=== PATIENT | male | born 1960 | race Caucasian/White ===

== ENCOUNTER 2025-05-07 13:26 | Outpatient (AMB) | payer MEDICARE, SELFPAY ==
--- OUTSIDE RECORDS SUMMARY | 2023-11-08 07:15 | XMS_ITS ---
Author Organization [facility] Address [address] [place] [address] Care Team Providers Care Medical Staff Manager Name Role Phone Baldomero Slaughter Primary Care Provider REASON FOR VISIT (IN OFFICE), Follow Up Encounters Encounter Location Date Provider Diagnosis [facility] [address] [place] [address] 11/08/19 Baldomero Slaughter PLAN OF TREATMENT Next Appt Details Provider Name:Baldomero cortez, 06/11/2025 10:00:00 AM, [address] [place], [address],
--- NOTE | 2025-05-07 14:11 | MHC.OFFVIS ---
Intake Visit Reasons: ENP-Ataxic Gait Allergies No Known Allergies Allergy (Verified 05/03/25 14:35) HPI Comments Details: The patient is a 65-year-old male presenting with motor and balance difficulties, possibly related to a neurological disorder. He received a cortisone injection approximately one year ago, followed by physical therapy, and later experienced right hamstring weakness. This has led to tightness and locking in his knees and difficulty with balance. The patient struggles with writing, stair navigation, and falls frequently. His right hand shakes, impeding writing, though the left hand remains unaffected. Multiple MRIs revealed no abnormalities, with a thoracic spine MRI pending. The patient denies diabetes and reports prior alcohol use. Memory is reportedly adequate, bladder control is normal, and there is no history of recent hospitalizations. A trial of Parkinson's medication has been initiated based on observed Parkinsonism features. [facility] Medical History (Updated 05/07/25 @ 14:18 by Kandy Villavicencio MD) Lumbar radiculopathy Ataxic gait Review of Systems Const Details: - Musculoskeletal: Reports tightness and locking of the knees; denies significant joint pain. - Neurological: Reports difficulty walking, imbalance, right hand tremor, falls, and inability to write with the right hand; denies cognitive impairment or memory loss. - Genitourinary: Denies difficulty with bladder control; occasional urgency noted. - General: Denies current alcohol consumption; reports previous use. Physical Exam Neuro Other: Mental Status: Alert and oriented to person, place, and time. Normal attention. Normal spontaneous speech, fluency, and comprehension. No obvious issues with mood and memory. Affect is appropriate. Cranial Nerves: CN II: Visual jurado full to confrontation, visual acuity intact. CN III, IV, : Pupils equal, round, reactive to light and accommodation. Extraocular movements are normal. CN V: Facial sensation is normal. CN VII: Facial movements symmetrical. CN VIII: Hearing intact to bedside conversation is normal. CN IX, X: Palate elevates symmetrically. CN XI: Shoulder shrug and head turn symmetrical. CN XII: Tongue midline without atrophy or fasciculations. Deep tendon reflexes are 1+ with flexor plantars. No obvious fasciculations are noted. There was mild generalized bradykinesia but more so of the right side. He has significant difficulty getting out of chair. He was walking in his small steps magnetic type of gait with decreased arm swing on the right side. Speech: Normal; no dysarthria or tremor. Assessment & Plan Assessment & Plan (1) Ataxic gait: Code(s): R26.0 - Ataxic gait Category: Medical (2) Parkinsonism: Code(s): G20.C - Parkinsonism, unspecified Category: Medical Qualifiers: Parkinsonism type: unspecified Qualified Code(s): G20.C - Parkinsonism, unspecified Plan Impression: 65 yo man with progressive gait disorder for about a year. He was also having many other physical difficulties. On exam, he has mild right hemibody parkinsonian features, and gait disorder. Rec: a: Trial of sinemet 25/100 tid b: Bring MRI brain CD at next visit Medications: New carbidopa-levodopa 25-100 mg (Sinemet) 1 tab PO TID 90 tabs 0RF Coding Level of Care Code New Pt Level 5 (31812) Diagnoses Ataxic gait R26.0 Parkinsonism, unspecified Parkinsonism type G20.C Parkinsonism type: unspecified
--- OUTSIDE RECORDS SUMMARY | 2025-05-07 16:29 | XMS_ITS | Encounter Summary ---
Author Organization [facility] Address [address] [place] [address] Care Team Providers Care Maintenance Supervisor 2Nd Shift Name Role Phone Ros Flores APRN Primary Care Provider Pcp, No Primary Care Provider Unavailabl e Reason for Visit * Reason Comments Medication Refill Encounter Details Date Type Department Care Team (Late st Contact Info) Description 07/09/2019 Refill [facility] [address] [facility] [address] [place] [address] Ros Flores APRN 100 [facility] [address] [place] [address] Anxiety and depression (Primary Dx) Social History Tobacco Use Types Packs/Day Years Used Date Smoking Tobacco: Former Cigarettes 0.5 20.2 0 08/15/1998 - 10/11/2018 Smokeless Tobacco: Current Comments:currently smoking t he vapor cigarettes Alcohol Use Standard Drinks/Week Comments Yes 6 (1 standard drink = 0.6 oz pur e alcohol) almost every day AUDIT-C Answer Date Recorded Frequency of Alcohol Consumption 4 or more times a week 11/14/2018 Average Number of Drinks 10 or more 019 Frequency of Binge Drinking Daily or almost chavo y 11/14/2018 Sex and Gender Information Value Date Recorded Sex Assigned at Not on file Legal Sex Male 12:28 PM EST Gender Identity Not on file Sexual Orientation Not on file documented as of this encounter Miscellaneous Notes * Telephone Encounter - Gemma Mcdonnell LPN - 07/09/2019 3:41 PM EST Is this ok to refill? Please advise. documented in this encounter Plan of Treatment Not on file documented as of this encounter Visit Diagnoses Diagnosis Anxiety and depression- Primary documented in this encounter Care Teams Maintenance Supervisor 2Nd Shift Relationship Specialty Start Date End Date Ros Flores APRN [address] [place] [address] PCP - General Family Medicine 09/07/18 01/05/24 Pcp, No PCP - General General Medicine 01/06/24 documented as of this encounter
--- OUTSIDE RECORDS SUMMARY | 2025-05-07 16:29 | XMS_ITS | Encounter Summary ---
Author Organization [facility] Address [address] [place] [address] Care Team Providers Care Digital Sales Executive Name Role Phone Ros Flores Raul CONNORS Primary Care Provider [phone] Pcp, No Primary Care Provider Unavailabl e Encounter Details Date Type Department Care Team (Late st Contact Info) Description 07/16/2020 Scanned Document [address] [place] [phone] Gastroenterology, Scan Social History Tobacco Use Types Packs/Day Years Used Date Smoking Tobacco: Light Smoker Cigarettes 0.5 20.2 Started: 999; Last attempted to quit: 10/11/2018 Smokeless Tobacco: Current Comments:currently smoking t he vapor cigarettes Alcohol Use Standard Drinks/Week Comments Yes 6 (1 standard drink = 0.6 oz pur e alcohol) almost every day AUDIT-C Answer Date Recorded Frequency of Alcohol Consumption 4 or more times a week 11/14/2018 Average Number of Drinks 10 or more 019 Frequency of Binge Drinking Daily or almost chavo y 11/14/2018 PHQ-2 Answer Date Recorded PHQ-2 Total Score 2 03/12/2020 Sex and Gender Information Value Date Recorded Sex Assigned at Not on file Legal Sex Male 12:28 PM EST Gender Identity Not on file Sexual Orientation Not on file COVID-19 Exposure Response Date Recorded In the last month, have you been in contact with someone who was confirmed or suspected to have Coronavirus / COVID-19? No / Unsure 07/17/2020 4:20 PM EST documented as of this encounter Plan of Treatment Not on file documented as of this encounter Procedures Procedure Name Priority Date/Time Associated Diagnosis Comments HX GASTROENTEROLOGY OTHER TEST/PROCEDURES-SCAN 07/16/2020 HX GASTROENTEROLOGY OTHER TEST/PROCEDURES-SCAN 07/16/2020 documented in this encounter Results * HX GASTROENTEROLOGY OTHER TEST/PROCEDURES-SCAN (07/16/2020) 07/16/2020 us Scan Gastroenterology HX AMB PROCEDURES Edited R esult - Final * HX GASTROENTEROLOGY OTHER TEST/PROCEDURES-SCAN (07/16/2020) 07/16/2020 us Scan Gastroenterology HX AMB PROCEDURES Edited R esult - Final documented in this encounter Visit Diagnoses Not on filedocumented in this encounter Care Teams Digital Sales Executive Relationship Specialty Start Date End Date Ros Flores APRN [address] [place] [address] PCP - General Family Medicine 09/07/18 01/05/24 Pcp, No PCP - General General Medicine 01/06/24 documented as of this encounter
--- OUTSIDE RECORDS SUMMARY | 2025-05-07 16:29 | XMS_ITS | Clinical Summary ---
Author Organization [facility] Address [address] [place] [address] Care Team Providers Care School Examiner Name Role Phone Ros Flores WAYLON Primary Care Provider [phone] Allergies No known active allergies Medications Medication Sig Dispensed Refills Start Date End Date Status hydrALAZINE (APRESOLINE) 25 MG tablet Take 25 mg by mouth 2 (two) times a day. 0 Active hydroCHLOROthiazide (HYDRODIURIL) tablet 25 mg Take 25 mg by mouth daily. 0 Active atorvastatin (LIPITOR) tablet 20 mg Take 20 mg by mouth daily. 0 Active BUPROPION HCL PO Take 300 mg by mouth daily. 0 Active losartan (COZAAR) 100 MG tablet Take 100 mg by mouth daily. 0 Active pantoprazole (PROTONIX) 40 MG tablet Take 40 mg by mouth daily. 0 Active amLODIPine (NORVASC) tablet 10 mg Take 10 mg by mouth daily. 0 Active sertraline (ZOLOFT) 100 MG tablet Take 100 mg by mouth daily. 0 Active busPIRone (BUSPAR) 15 MG tablet Take 15 mg by mouth 3 (three) times a day. 0 Active acamprosate (CAMPRAL) 333 MG tablet Take 666 mg by mouth 3 (three) times a day. 0 Active Social History Tobacco Use Types Packs/Day Years Used Date Smoking Tobacco: Every Day Cigars Smokeless Tobacco: Never Comments:3 to 4 cigars per d ay Alcohol Use Standard Drinks/Week Comments Yes 0 (1 standard drink = 0.6 oz pur e alcohol) on weekends Sex and Gender Information Value Date Recorded Sex Assigned at Male 07/11/2020 7:46 AM EST Gender Identity Not on file Sexual Orientation Not on file Last Filed Vital Signs Vital Sign Reading Time Taken Comments Blood Pressure 133/79 07/16/2020 11:05 AM EST Pulse 71 07/16/2020 11:05 AM EST Temperature 36.3 C (97.3 F) 07/16/2020 10:45 AM EST Respiratory Rate 18 07/16/2020 11:05 AM EST Oxygen Saturation 97% 07/16/2020 11:05 AM EST Inhaled Oxygen Concentration - - Weight 108.9 kg (240 lb) 07/16/2020 9:22 AM EST Height 182.9 cm (6') 07/16/2020 9:22 AM EST Body Mass Index 32.55 07/16/2020 9:22 AM EST Plan of Treatment Health Maintenance Due Date Last Done Comments Hepatitis C Screening 1960 COVID-19 Vaccine (#1) 1960 Pneumococcal Vaccine (1 of 2 - PCV) 01/29/1964 Depression Screening 1970 BMI Counseling 01/29/1976 Preventative Health Evaluation 01/29/1976 Tobacco Cessation Counseling 01/29/1976 Shingrix-Zoster Vaccine (1 o f 2) 01/29/2008 Abdominal Aortic Aneurysm (AAA) Screening 2023 Fall Risk Assessment 2023 Influenza Vaccine (#1) 2025 0, 06/11/2019 DTap / Tdap / Td (2 - Td or Tdap) 04/24/2030 04/24/2020 Colon Cancer Screening (Colonoscopy) 07/16/2030 07/16/2020 RSV Adult > 60+ Yrs or (1 - 1-dose 75+ series) 2033 Hepatitis B Vaccines Aged Out No long er eligible based on patient's age to complete this topic RSV Ped < 20 months Aged Out No longe r eligible based on patient's age to complete this topic Care Teams School Examiner Relationship Specialty Start Date End Date Ros Flores APRN [address] [place] [address] PCP - General Unknown Physician Specialty 07/16/20
--- OUTSIDE RECORDS SUMMARY | 2025-05-07 16:29 | XMS_ITS | Encounter Summary ---
Author Organization [facility] Address [address] [place] [address] Care Team Providers Care Service Administrator Name Role Phone Ros Flores APRN Primary Care Provider [phone] Pcp, No Primary Care Provider Unavailabl e Reason for Visit * Reason Comments Medication Refill Encounter Details Date Type Department Care Team (Late st Contact Info) Description 03/03/[address] [place] [address] Ros Flores APRN 100 [facility] [address] [place] [address] Erectile dysfunction, unspecified erectile dysfunction type Social History Tobacco Use Types Packs/Day Years Used Date Smoking Tobacco: Every Day Cigarettes 0.5 20.2 Started: 08/15/1998; Last attempted to quit: 10/11/2018 Smokeless Tobacco: [...] have Coronavirus / COVID-19? No / Unsure 02/25/2021 11:39 AM EDT documented as of this encounter Plan of Treatment Not on file documented as of this encounter Visit Diagnoses Diagnosis Erectile dysfunction, unspecified erectile dysfunction type documented in this encounter Care Teams Service Administrator Relationship Specialty Start Date End Date Ros Flores APRN [address] [place] [address] PCP - General Family Medicine 09/07/18 01/05/24 Pcp, No PCP - General General Medicine 01/06/24 documented as of this encounter
--- OUTSIDE RECORDS SUMMARY | 2025-05-07 16:29 | XMS_ITS | Encounter Summary ---
Author Organization [facility] Address [address] [place] [address] Care Team Providers Care Construction Accountant Name Role Phone Ros Flores APRN Primary Care Provider Pcp, No Primary Care Provider Unavailabl e Encounter Details Date Type Department Care Team (Late st Contact Info) Description 03/12/2020 Scanned Document [address] [place] [address] Ros Flores APRN 100 [facility] [address] [place] [address] Social History Tobacco Use Types Packs/Day Years [...] have Coronavirus / COVID-19? No / Unsure 03/12/2020 1:02 PM EDT documented as of this encounter Plan of Treatment Not on file documented as of this encounter Visit Diagnoses Not on filedocumented in this encounter Care Teams Construction Accountant Relationship Specialty Start Date End Date Ros Flores APRN [address] [place] [address] PCP - General Family Medicine 09/07/18 01/05/24 Pcp, No PCP - General General Medicine 01/06/24 documented as of this encounter
--- OUTSIDE RECORDS SUMMARY | 2025-05-07 16:29 | XMS_ITS | Encounter Summary ---
Author Organization [facility] Address [address] [place] [address] Care Team Providers Care Bolter Helper Name Role Phone Ros Flores APRN Primary Care Provider [phone] Pcp, No Primary Care Provider Unavailabl e Reason for Visit * Reason Onset Date Comments Medication Refill 01/13/2020 Encounter Details Date Type Department Care Team (Late st Contact Info) Description 01/13/2020 Refill [facility] 100 [facility] [address] [place] [phone] Ros Flores APRN [address] [place] [address] [address] [place] [address] Essential hypertension Social History Tobacco Use Types Packs/Day Years [...] Telephone Encounter - Gemma Mcdonnell LPN - 01/14/2020 1:04 PM EDT Please clarify dosages. Note from pharmacy states -The previous medication was prescribed with free-text dispense value of 90 capsule. Please review the discrete dispense values when signing the order. documented in this encounter Plan of Treatment Not on file documented as of this encounter Visit Diagnoses Diagnosis Essential hypertension Unspecified essential hypertension documented in this encounter Care Teams Bolter Helper Relationship Specialty Start Date End Date Ros Flores APRN [address] [place] [address] PCP - General Family Medicine 09/07/18 01/05/24 Pcp, No PCP - General General Medicine 01/06/24 documented as of this encounter
--- OUTSIDE RECORDS SUMMARY | 2025-05-07 16:29 | XMS_ITS | Encounter Summary ---
Author Organization [facility] Address [address] [place] [address] Care Team Providers Care Airplane Captain Name Role Phone Ros Flores WAYLON Primary Care Provider [phone] Pcp, No Primary Care Provider Unavailabl e Encounter Details Date Type Department Care Team (Late st Contact Info) Description 04/07/2020 Scanned Document [facility] [address] [place] [address] Provider, Jaylene, [address] [place] [address] Social History Tobacco Use Types Packs/Day Years [...] on filedocumented in this encounter Care Teams Airplane Captain Relationship Specialty Start Date End Date Ros Flores APRN [address] [place] [address] PCP - General Family Medicine 09/07/18 01/05/24 Pcp, No PCP - General General Medicine 01/06/24 documented as of this encounter
--- OUTSIDE RECORDS SUMMARY | 2025-05-07 16:29 | XMS_ITS | Encounter Summary ---
Author Organization [facility] Address [address] [place] [address] Care Team Providers Care Silk Blocker Name Role Phone Ros Flores APRN Primary Care Provider [phone] Pcp, No Primary Care Provider Unavailabl e Encounter Details Date Type Department Care Team (Late st Contact Info) Description 11/13/2021 Scanned Document [address] [place] [address] Ros Flores APRN 100 [facility] [address] [place] [address] Social History Tobacco Use Types Packs/Day Years Used Date Smoking Tobacco: Former Cigarettes 0.5 22.8 0 08/15/1998 - 05/29/2021 Smokeless Tobacco: Current Comments:currently smoking t he [...] have Coronavirus / COVID-19? No / Unsure 11/09/2021 2:40 PM EDT documented as of this encounter Plan of Treatment Not on file documented as of this encounter Visit Diagnoses Not on filedocumented in this encounter Care Teams Silk Blocker Relationship Specialty Start Date End Date Ros Flores APRN [address] [address] PCP - General Family Medicine 09/07/18 01/05/24 Pcp, No PCP - General General Medicine 01/06/24 documented as of this encounter
--- OUTSIDE RECORDS SUMMARY | 2025-05-07 16:29 | XMS_ITS | Encounter Summary ---
Author Organization [facility] Address [address] [place] [address] Care Team Providers Care Billet Worker Name Role Phone Ros Flores APRN Primary Care Provider Pcp, No Primary Care Provider Unavailabl e Reason for Visit * Reason Onset Date Comments Medication Refill 03/05/2021 Encounter Details Date Type Department Care Team (Late st Contact Info) Description 03/05/[address] [place] [phone] Ros Flores APRN 100 [facility] [address] [place] [address] Erectile dysfunction, unspecified erectile dysfunction type Social [...] type documented in this encounter Care Teams Billet Worker Relationship Specialty Start Date End Date Ros Flores APRN [address] [place] [address] PCP - General Family Medicine 09/07/18 01/05/24 Pcp, No PCP - General General Medicine 01/06/24 documented as of this encounter
--- OUTSIDE RECORDS SUMMARY | 2025-05-07 16:29 | XMS_ITS | Patient Health Record ---
Author Organization [facility] Address [address] [place] [address] Care Team Providers Care Plasterer Foreman Name Role Phone Baldomero Slaughter Primary Care Provider ALLERGIES No Known Allergies REASON FOR REFERRAL No Information MEDICATIONS Medication SIG (Take, Route, Frequency, Duration) Notes Start Date End Date Status metroNIDAZOLE 0.75 % 1 application Externally Twice a day Active Melatonin 5 MG 1 tablet in the evening Orally Once a day for 30 day(s) Active Tadalafil 20 MG 1 tablet Orally for 30 day(s) Active Triamcinolone Acetonide 0.1 % 1 applicat ion Externally Twice a day Active Sertraline HCl 100 MG 0.5 tablet Orally Once a day Active hydrALAZINE HCl 25 MG TAKE 1 TABLET BY M OUTH TWICE DAILY WITH FOOD for 90 Active Baclofen 10 MG 1 tablet as needed Orally Twice a day for 90 Days Active Sertraline HCl 100 MG TAKE 1 TABLET BY M OUTH ONCE DAILY for 90 Active Famotidine 40 MG TAKE 1 TABLET BY GRICEL TH ONCE DAILY AT BEDTIME for 90 Active Atorvastatin Calcium 20 MG TAKE 1 TABLET BY MOUTH ONCE DAILY for 100 Active hydroCHLOROthiazide 25 MG 1 tablet in th e morning Orally Once a day Active Atorvastatin Calcium 20 MG 1 tablet Oral ly Once a day Active Famotidine 40 MG 1 tablet at bedtime Orally Once a day Active Pantoprazole Sodium 20 MG TAKE 2 TABLETS BY MOUTH ONCE DAILY for 80 Active IMMUNIZATIONS Vaccine Route Administration Date Status Comme nts *Influenza (Fluarix Quad) IM Intramuscular 06/08/2022 Admi nistered *Influenza (Fluarix Quad) IM Intramuscular 05/17/2023 Admi nistered SOCIAL HISTORY Tobacco Use: Social History Observation Description Date Details (start date - stop date) Current Smoker NA - NA Sex Assigned At : Social History Observation Description Sex Assigned At Unknown Tobacco Use/Smoking Question Answer Notes Are you a current smoker Alcohol Screen Question Answer Notes Did you have a drink containing alcohol in the p ast year? 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) Active confirmed 63270550 Problem History of alcohol abuse (F10.11) Active confirmed 269037713 Problem Gastroesophageal reflux disease with esophagitis without hemorrhage (K21.00) Active confirmed 571098215 PLAN OF TREATMENT Pending Test Test Name Order Date X ray : Hip, right 08/18/2022 GUAIAC, SINGLE SPECIMEN 08/18/2022 25OH VITAMIN D 05/17/2023 25OH VITAMIN D 06/08/2022 AMMONIA, VENOUS 06/08/2022 AMYLASE 06/08/2022 CBC (COMPLETE BLOOD COUNT) WITH DIFF CBC (COMPLETE BLOOD COUNT) WITH DIFF 10/2022 COMPREHENSIVE METABOLIC PANEL 06/08/2022 COMPREHENSIVE METABOLIC PANEL 05/17/2023 FOLIC ACID 06/08/2022 GGTP 06/08/2022 HEPATIC FUNCTION PANEL 11/16/2022 LH 06/08/2022 LIPASE 06/08/2022 LIPID PANEL 11/16/2022 LIPID PANEL 06/08/2022 LIPID PANEL 05/17/2023 PSA, SCREEN 06/08/2022 PSA, SCREEN 05/17/2023 TESTOSTERONE, FREE, TOTAL AND BOUND 05/16 THYROID PANEL (TSH, FT4) 06/08/2022 THYROID PANEL (TSH, FT4) 05/17/2023 URINALYSIS, COMPLETE 05/17/2023 URINALYSIS, COMPLETE 06/08/2022 VITAMIN B12 06/08/2022 Next Appt Details Provider Name:Baldomero cortez, 06/11/2025 10:00:00 AM, [address] [place] [address], [phone], Insurance Providers Payer Name Payer Address Payer Phone Subscriber Number Group Number Insured Name Patient Relationship to Insured Coverage Start Date Coverage End Date [facility] [address] [facility] [place] [id number] [phone] [id number] Mario Kovacs Self - patient is the insured MEDICAL (GENERAL) HISTORY Surgical History Surgery Date(Month/Year)
--- OUTSIDE RECORDS SUMMARY | 2025-05-07 16:29 | XMS_ITS | Encounter Summary ---
Author Organization [facility] Address [address] [place] [address] Care Team Providers Care Analysis Manager Name Role Phone Mark Ros Raul CONNORS Primary Care Provider [phone] Pcp, No Primary Care Provider Unavailabl e Encounter Details Date Type Department Care Team (Late st Contact Info) Description 11/01/2023 Telephone [facility] [address] [place] [phone] Terrance Stephenson [address] [place], [place] [id number] Social History Tobacco Use Types Packs/Day Years [...] encounter Miscellaneous Notes * Telephone Encounter - Terrance Stephenson - 11/01/2023 2:02 PM EDT Patient has a new insurance. He lm have procedure done with different doctor documented in this encounter Plan of Treatment Not on file documented as of this encounter Visit Diagnoses Not on filedocumented in this encounter Care Teams Analysis Manager Relationship Specialty Start Date End Date Ros Flores APRN [address] [place] [address] PCP - General Family Medicine 09/07/18 01/05/24 Pcp, No PCP - General General Medicine 01/06/24 documented as of this encounter
--- OUTSIDE RECORDS SUMMARY | 2025-05-07 16:29 | XMS_ITS | Encounter Summary ---
Author Organization [facility] Address [address] [place] [address] Care Team Providers Care Shrimp Pond Laborer Name Role Phone Ros Flores APRN Primary Care Provider Pcp, No Primary Care Provider Unavailabl e Reason for Visit * Reason Comments Medication Refill Encounter Details Date Type Department Care Team (Late st Contact Info) Description 07/16/2019 Refill [facility] 100 [facility] [address] [place] [phone] Ros Flores APRN [address] [facility] [address] [place] [address] Essential hypertension (Primary Dx); Hiatal hernia Social History Tobacco Use Types Packs/Day Years [...] Telephone Encounter - Gemma Mcdonnell LPN - 07/17/2019 9:44 AM EST Please see last telephone encounter.please advise. documented in this encounter Plan of Treatment Not on file documented as of this encounter Visit Diagnoses Diagnosis Essential hypertension- Primary Unspecified essential hypertension Hiatal hernia Diaphragmatic hernia without mention of obstruction or gangrene documented in this encounter Care Teams Shrimp Pond Laborer Relationship Specialty Start Date End Date Ros Flores APRN [address] [place] [address] PCP - General Family Medicine 09/07/18 01/05/24 Pcp, No PCP - General General Medicine 01/06/24 documented as of this encounter
--- OUTSIDE RECORDS SUMMARY | 2025-05-07 16:29 | XMS_ITS | Encounter Summary ---
Author Organization [facility] Address [address] [place] [address] Care Team Providers Care Personnel Placement Specialist Name Role Phone Ros Flores APRN Primary Care Provider [phone] Pcp, No Primary Care Provider Unavailabl e Reason for Visit * Reason Comments Medication Refill Encounter Details Date Type Department Care Team (Late st Contact Info) Description 01/17/[address] [place] [phone] Ros Flores APRN 100 [facility] [address] [place] [address] Essential hypertension Social History Tobacco Use Types [...] Telephone Encounter - Gemma Mcdonnell LPN - 01/17/2020 11:38 AM EDT Notification received from pharmacy regarding clarification of HCTZ dosages. Please advise. Pharmacy comment: Alternative Requested:NEEDS TO BE FOR 25MG TABLETS PT STATES MD VERBALLY TOLD TO INCREASE DOSE. NEED PRESCRIPTION TO REFELCT CURRENT DOSAGE. documented in this encounter Plan of Treatment Not on file documented as of this encounter Visit Diagnoses Diagnosis Essential hypertension Unspecified essential hypertension documented in this encounter Care Teams Personnel Placement Specialist Relationship Specialty Start Date End Date Ros Flores APRN [address] [place] [address] PCP - General Family Medicine 09/07/18 01/05/24 Pcp, No PCP - General General Medicine 01/06/24 documented as of this encounter
--- OUTSIDE RECORDS SUMMARY | 2025-05-07 16:29 | XMS_ITS | Encounter Summary ---
Author Organization [facility] Address [address] [place] [address] Care Team Providers Care Clinical Business Manager Name Role Phone Ros Flores APRN Primary Care Provider [phone] Pcp, No Primary Care Provider Unavailabl e Reason for Visit * Reason Comments Medication Refill Encounter Details Date Type Department Care Team (Late st Contact Info) Description 11/08/[address] [place] [phone] Ros Flores APRN 100 [facility] [address] [place] [address] Anxiety and depression Social History Tobacco Use Types Packs/Day Years [...] on file documented as of this encounter Plan of Treatment Not on file documented as of this encounter Visit Diagnoses Diagnosis Anxiety and depression documented in this encounter Care Teams Clinical Business Manager Relationship Specialty Start Date End Date Ros Flores APRN [address] [place] [address] PCP - General Family Medicine 09/07/18 01/05/24 Pcp, No PCP - General General Medicine 01/06/24 documented as of this encounter
--- OUTSIDE RECORDS SUMMARY | 2025-05-07 16:29 | XMS_ITS | Encounter Summary ---
Author Organization [facility] Address [address] [place] [address] Care Team Providers Care Firer Helper Name Role Phone Ros Flores APRN Primary Care Provider [phone] Pcp, No Primary Care Provider Unavailabl e Reason for Visit * Reason Comments Medication Refill Encounter Details Date Type Department Care Team (Late st Contact Info) Description 12/30/[address] [place] [phone] Ros Flores APRN 100 [facility] [address] [place] [address] Essential hypertension Social History Tobacco Use Types [...] hypertension documented in this encounter Care Teams Firer Helper Relationship Specialty Start Date End Date Ros Flores APRN [address] [place] [address] PCP - General Family Medicine 09/07/18 01/05/24 Pcp, No PCP - General General Medicine 01/06/24 documented as of this encounter
--- OUTSIDE RECORDS SUMMARY | 2025-05-07 16:29 | XMS_ITS | Clinical Summary ---
Author Organization [facility] Address [address] [place] [address] Care Team Providers Care Booking Prizer Name Role Phone Pcp, No Primary Care Provider Unavailabl e Allergies No known active allergies Medications busPIRone (BUSPAR) 15 MG tablet Take 15 mg by mouth 3 (three) times a day. Active acamprosate (CAMPRAL) 333 MG tablet Take 333 mg by mouth 3 (three) times a day. Active buPROPion (WELLBUTRIN XL) 300 MG 24 hr tabletIndications :Anxiety and depression TAKE 1 TABLET BY MOUTH EVERY DAY 90 tablet 1 0 Active metroNIDAZOLE (METROGEL) 0.75 % topical gelIndications:Ac ne rosacea Apply topically 2 (two) times a day. 45 g 1 1 Active amLODIPine (NORVASC) 10 MG tabletIndications :Essential hypertension Take 1 tablet (10 mg total) by mouth daily. 90 tablet 1 1 Active baclofen (LIORESAL) 10 MG tablet 1 Active gabapentin (NEURONTIN) 300 MG capsule 1 Active [facility] Melatonin 5 MG Tab tablet 1 Active naltrexone (REVIA) 50 MG tablet 1 Active tadalafil (CIALIS) 20 MG tabletIndications :Erectile dysfunction, unspecified erectile dysfunction type Take 1 tablet (20 mg total) by mouth daily as needed for erectile dysfunction. 10 tablet 1 1 Active sertraline (ZOLOFT) 100 MG tabletIndications :Anxiety and depression Take 2 tablets (200 mg total) by mouth daily. 180 tablet 2 2 Active triamcinolone (KENALOG) 0.1 % ointmentIndicatio ns:Eczema, unspecified type APPLY TO AFFECTED AREA TWICE A DAY 30 g 1 2 Active hydrochlorothiazi de (HYDRODIURIL) 25 MG tabletIndications :Essential hypertension TAKE 1 TABLET BY MOUTH EVERY DAY 90 tablet 1 2 Active zoster vaccine recombinant adjuvanted (SHINGRIX) 50 MCG/0.5ML injectionIndicati ons:Need for zoster vaccination Inject 0.5 mL into the shoulder, thigh, or buttocks once. 0.5 mL 2 Active atorvastatin (LIPITOR) 20 MG tabletIndications :Hypercholesterem ia TAKE 1 TABLET BY MOUTH EVERY DAY 90 tablet 1 2 Active olmesartan (BENICAR) 40 MG tabletIndications :Essential hypertension TAKE 1 TABLET BY MOUTH EVERY DAY 90 tablet 2 Active PANTOprazole (PROTONIX) 20 MG tabletIndications :Brown's esophagus without dysplasia TAKE 2 TABLETS BY MOUTH TWICE A DAY 90 tablet 1 2 Active hydrALAZINE (APRESOLINE) 25 MG tabletIndications :Essential hypertension TAKE 1 TABLET (25 MG TOTAL) BY MOUTH 2 (TWO) TIMES A DAY AFTER BREAKFAST AND LUNCH. 180 tablet 1 3 Active Active Problems Problem Noted Date Diagnosed Date Centrilobular emphysema 11/09/2021 Obesity 11/09/2021 Brown's esophagus without dysplasia 06/06/2020 Assessment & Plan (11/09/2021 4:25 PM EDT): Discussed Avoiding /limit tobacco, alcohol, chocolate, peppermint, caffeine, greasy foods, spicy foods, and acidic foods such as citrus and tomato. Eat smaller, more frequent meals, and do not eat within 2 hours of bedtime. If you have night-time symptoms, elevate the head of the bed 6 to 12 inches. Assessment & Plan (06/06/2020 2:41 PM EDT): Discussed the increased risk of dysplasia and esophageal cancer associated with Brown's Esophagus. ETOH, obesity, smoking and GERD increase risk. Recommend treatment for acid reduction. Routine surveillance and biopsy are recommended to monitor for dysplasia and cancer. Continue pantoprazole EGD overdue for surviellance Change in bowel function 06/06/2020 Assessment & Plan (06/06/2020 2:42 PM EDT): Improved with new OTC supplements Follow clinically Gastroesophageal reflux disease 06/05/2020 Assessment & Plan (06/06/2020 2:41 PM EDT): Avoid/limit tobacco, alcohol, chocolate, peppermint, caffeine, greasy foods, spicy foods, and acidic foods such as citrus and tomato. Eat smaller, more frequent meals, and do not eat within 2 hours of bedtime. If you have night-time symptoms, elevate the head of the bed 6 to 12 inches. Well controlled on pantoprazole Cutting down on alcohol Melena 06/05/2020 Assessment & Plan (06/06/2020 2:53 PM EDT): Unclear if due to new supplement, r/o GI bleeding EGD/Colonoscopy Check H/H now to see if any change The risks, benefits and alternatives to the procedure were carefully explained to the patient. The risks include but are not limited to perforation, bleeding, infection, respiratory compromise and . All questions were answered. Adenomatous polyp of colon 06/05/2020 Assessment & Plan (06/06/2020 2:48 PM EDT): Hx colonoscopy 2012 with multiple TA Overdue for colonoscopy The risks, benefits and alternatives to the procedure were carefully explained to the patient. The risks include but are not limited to perforation, bleeding, infection, respiratory compromise and . All questions were answered. Covid testing prior Hypercholesteremia 06/11/2019 Assessment & Plan (02/09/2022 7:04 PM EDT): The 10-year ASCVD risk score (Eddie CASTILLO Jr., et al., 2013) is: 16% Values used to calculate the score: Age: 62 years Sex: Male Is Non- : No Diabetic: No Tobacco smoker: Yes Systolic Blood Pressure: 136 mmHg Is BP treated: Yes HDL Cholesterol: 68 mg/dL Total Cholesterol: 172 mg/dL Continue Lipitor 20 mg daily. Assessment & Plan (11/09/2021 4:27 PM EDT): The 10-year ASCVD risk score (Eddie CASTILLO Jr., et al., 2013) is: 15.4% Values used to calculate the score: Age: 61 years Sex: Male Is Non- : No Diabetic: No Tobacco smoker: Yes Systolic Blood Pressure: 138 mmHg Is BP treated: Yes HDL Cholesterol: 68 mg/dL Total Cholesterol: 172 mg/dL Continue Lipitor 20 mg we will recheck lipid panel Essential hypertension 11/14/2018 Overview (10/22/2020): --Echo-2019-LV end-diastolic dimension 58 mm in LVEF 53 percent. Upper normal aortic root size. Assessment & Plan (02/09/2022 7:04 PM EDT): Blood pressure normal will continue amlodipine 10 mg Benicar 40 mg with hydrochlorothiazide hydrochlorothiazide 25 mg. Low sodium diet Exercise 3 to 5 days a week for minimum 35 minutes. Follow-up in 3 months Assessment & Plan (11/09/2021 4:27 PM EDT): Blood pressure normal on amlodipine, Benicar and hydrochlorothiazide DASH diet. Alcoholism /alcohol abuse 11/14/2018 Assessment & Plan (06/06/2020 2:57 PM EDT): Check lab work Treatment per pcp Hiatal hernia 11/14/2018 Generalized anxiety disorder 11/14/2018 Immunizations Immunization Administration Dates Next Due Covid-19 MRNA Vaccine - Pfizer 12+ (Purple Cap) 12/19/2020,11/28/2020 Influenza Inactivated/Split Preservative Free IM 06/04/2020,06/11/2019 Tdap 04/24/2020 Family History Medical History Relation Name Comments Dementia Father Relation Name Status Comments Father Social History Tobacco Use Types Packs/Day Years Used Date Smoking Tobacco: Former Cigarettes 0.5 22.8 0 08/15/1998 - 05/29/2021 Smokeless Tobacco: Current Tobacco Cessation:Ready to Q uit: Yes; Counseling Given: Yes Comments:currently smoking the vapor cigarettes Alcohol Use Standard Drinks/Week Comments [...] Sign Reading Time Taken Comments Blood Pressure 136/80 02/09/2022 2:22 PM EDT Pulse 76 02/09/2022 2:22 PM EDT Temperature 36.2 C (97.1 F) 02/09/2022 2:22 PM EDT Respiratory Rate 16 02/09/2022 2:22 PM EDT Oxygen Saturation 96% 02/09/2022 2:22 PM EDT Inhaled Oxygen Concentration - - Weight 103 kg (227 lb) 02/09/2022 2:22 PM EDT Height 185.4 cm (6' 1 ) 02/09/2022 2:22 PM EDT Body Mass Index 29.95 02/09/2022 2:22 PM EDT Plan of Treatment Health Maintenance Due Date Last Done Comments Advance Care Planning 1960 Pneumococcal Vaccines 50+ (1 of 2 - PCV) 1977 Zoster (Shingles) Vaccine (1 of 2) 01/29/2008 RSV Vaccine 60 years and older and Patients (1 - Risk 60-74 years 1-dose series) 2018 Influenza Vaccine 03/15/2025 10/30/2021, , 06/11/2019, Additional history exists COVID-19 Vaccine (3 - 2024- season) 2025 12/19/2020, 11/28/2020 DTaP/Tdap/Td Vaccines (2 - Td or Tdap) 04/24/2030 04/24/2020 Colonoscopy 07/16/2030 07/16/2020 (Prev iously Completed) Hepatitis C Virus Screening Completed 11/23/2018 Abdominal Aortic Aneurysm (AAA) Screening Discontinued 10/27/2020 HIV Screening Discontinued 02/10/2022 Hepatitis B Vaccines Aged Out No long er eligible based on patient's age to complete this topic Procedures Procedure Name Priority Date/Time Associated Diagnosis Comments HIV 1/2 AG/AB CMIA REFLEX TO CONFIRMATION Routine 02/10/2022 1:15 PM EDT Encounter for screening for HIV CT ABDOMEN+PELVIS W/CONTRAST Routine 10/27/2020 4:16 PM EDT Umbilical hernia without obstruction and without gangrene Diastasis recti HEPATITIS C VIRUS (HCV) ANTIBODY Routine 11/23/2018 9:46 AM EDT Essential hypertension from Last 3 Months or Most Recently Relevant to Health Maintenance Results * HIV 1/2 Ag/Ab CMIA Reflex to Confirmation (02/10/2022 1:15 PM EDT) HIV Ag/Ab, 4th Gen NON-REACT ABILIO NON-REACT ABILIO [email or web address] Comment: HIV-1 antigen and HIV-1/HIV-2 antibodies were not detected. There is no laboratory evidence of HIV infection. PLEASE NOTE: This information has been disclosed to you from records whose confidentiality may be protected by state law. If your state requires such protection, then the state law prohibits you from making any further disclosure of the information without the specific written consent of the person to whom it pertains, or as otherwise permitted by law. A general authorization for the release of medical or other information is NOT sufficient for this purpose. For additional information please refer to http://education.[employer].Canevaflor/faq/UKZ834 (This link is being provided for informational/ educational purposes only.) The performance of this assay has not been clinically validated in patients less than 2 years old. Blood specimen (specimen) Blood specimen / Unknown 02/10/2022 1:15 PM EDT 02/10/2022 1:16 PM EDT us Jayro Flores APRN LAB BLOOD ORDERABLES Final Re sult [email or web address] 200 [facility], [facility], [place] [address] * CT Abdomen+pelvis w/contrast (10/27/2020 4:16 PM EDT) Anatomical Region Laterality Modality Abdomen, Pelvis Computed Tomogra phy 10/27/2020 11:4 5 AM EDT 10/27/2020 11:45 AM EDT Impressions 10/27/2020 4:16 PM EDT 1. Tiny fat-containing umbilical hernia with a neck of approximately 0.4 cm. Very minimal diastases of the rectus abdominis musculature at the level of the umbilicus measuring 1.7 cm. 2. 2 cm nodule in the left adrenal gland with internal Hounsfield units of 26. Recommend one year follow-up with adrenal washout CT. 3. Simple cyst of the right kidney. No further follow-up is necessary. Thank you for referring your patient to us, Kim Ta MD [id number] (Electronically Signed - 10/27/2020 16:16) Copy: JAYRO FLORES EDGING MACHINE CATCHER [facility] [address] [place] [address] Narrative 10/27/2020 4:16 PM EDT EXAMINATION: CT ABDOMEN AND PELVIS WITH CONTRAST CLINICAL INFORMATION: Umbilical hernia, diastases recti, preoperative planning COMPARISON: None TECHNIQUE: Multidetector volumetric imaging was performed of the abdomen and pelvis following administration of oral and 100 mL Omnipaque 300 intravenous contrast. Sagittal and coronal reformatted images were obtained on the technologists workstation. This CT examination was performed using dose optimization techniques as appropriate, variously including the following: *Automated exposure control *Adjustment of mA and/or kV according to patient size (this includes techniques or standardized protocols for targeted exams where dose is matched to indication/reason for exam; i.e. extremities or head) *Use of iterative reconstruction technique DLP: 703.54 mGy-cm FINDINGS: LUNG BASES: The visualized lung bases are unremarkable. LIVER, GALLBLADDER, AND BILIARY TREE: The liver is normal in size, shape, and attenuation. Scattered tiny hypodense lesions, too small to characterize, measuring up to 0.8 cm, likely chain sales representative of cysts (for example series 2, image 24). No biliary ductal dilatation is present. The gallbladder is unremarkable with no evidence of radiopaque gallstones, gallbladder wall thickening, or obvious pericholecystic inflammatory changes. PANCREAS: Unremarkable SPLEEN: Unremarkable ADRENAL GLANDS: There is a 1.4 x 2 cm nodule of the left adrenal gland, with internal Hounsfield units of 26. Normal right adrenal gland. KIDNEYS AND URETERS: The kidneys are normal in size, shape, and attenuation. No hydronephrosis, hydroureter, or calculi seen. No perinephric stranding. 2.6 cm simple cyst of the medial cortex of the upper pole of the right kidney. There are vascular calcifications of the left kidney. BLADDER: Unremarkable GASTROINTESTINAL TRACT: The small and large bowel are unremarkable. The appendix is unremarkable. ABDOMINAL WALL: There is very minimal diastases of the rectus abdominis musculature measuring approximately 1.7 cm. There is a tiny fat-containing umbilical hernia, with a neck of approximately 0.4 cm. There is a small, fat-containing right inguinal hernia. LYMPH NODES: Normal VASCULAR: Normal caliber of the abdominal aorta. Scattered atheromatous calcifications. PELVIC VISCERA: The prostate and seminal vesicles are unremarkable. OSSEOUS STRUCTURES: No acute or suspicious osseous abnormality. Procedure Note Kim Ta MD - 10/27/2020 EXAMINATION: CT ABDOMEN AND PELVIS WITH CONTRAST CLINICAL INFORMATION: Umbilical hernia, diastases recti, preoperative planning COMPARISON: None TECHNIQUE: Multidetector volumetric imaging was performed of the abdomen and pelvis following administration of oral and 100 mL Omnipaque 300 intravenous contrast. Sagittal and coronal reformatted images were obtained on the technologists workstation. This CT examination was performed using dose optimization techniques as appropriate, variously including the following: *Automated exposure control *Adjustment of mA and/or kV according to patient size (this includes techniques or standardized protocols for targeted exams where dose ismatched to indication/reason for exam; i.e. extremities or head) *Use of iterative reconstruction technique DLP: 703.54 mGy-cm FINDINGS: LUNG BASES: The visualized lung bases are unremarkable. LIVER, GALLBLADDER, AND BILIARY TREE: The liver is normal in size, shape,and attenuation. Scattered tiny hypodense lesions, too small tocharacterize, measuring up to 0.8 cm, likely chain sales representative of cysts (for example series2, image 24). No biliary ductal dilatation is present. The gallbladder is unremarkable with no evidence of radiopaque gallstones, gallbladder wall thickening, or obvious pericholecystic inflammatory changes. PANCREAS: Unremarkable SPLEEN: Unremarkable ADRENAL GLANDS: There is a 1.4 x 2 cm nodule of the left adrenal gland,with internal Hounsfield units of 26. Normal right adrenal gland. KIDNEYS AND URETERS: The kidneys are normal in size, shape, andattenuation. No hydronephrosis, hydroureter, or calculi seen. No perinephric stranding.2.6 cm simple cyst of the medial cortex of the upper pole of the rightkidney. There are vascular calcifications of the left kidney. BLADDER: Unremarkable GASTROINTESTINAL TRACT: The small and large bowel are unremarkable. The appendix is unremarkable. ABDOMINAL WALL: There is very minimal diastases of the rectus abdominis musculature measuring approximately 1.7 cm. There is a tinyfat-containing umbilical hernia, with a neck of approximately 0.4 cm. There is a small, fat-containing right inguinal hernia. LYMPH NODES: Normal VASCULAR: Normal caliber of the abdominal aorta. Scattered atheromatous calcifications. PELVIC VISCERA: The prostate and seminal vesicles are unremarkable. OSSEOUS STRUCTURES: No acute or suspicious osseous abnormality. IMPRESSION: 1. Tiny fat-containing umbilical hernia with a neck of approximately 0.4cm. Very minimal diastases of the rectus abdominis musculature at the level ofthe umbilicus measuring 1.7 cm. 2. 2 cm nodule in the left adrenal gland with internal Hounsfield units of26. Recommend one year follow-up with adrenal washout CT. 3. Simple cyst of the right kidney. No further follow-up is necessary. Thank you for referring your patient to us, Kim Ta MD [phone] (Electronically Signed - 10/27/2020 16:16) Copy: JAYRO FLORES WAYLON [facility] [address] [facility] [place] [address] us Pancho Servin MD IMG CT ORDERABLES Final Resu lt * Hepatitis C Virus (HCV) Antibody (11/23/2018 9:46 AM EDT) Hepatitis C Antibody NON-REACT ABILIO NON-REACT ABILIO [facility] Hepatitis C Antibody (s/co) 0.01 <1.00 [facility] Comment: HCV antibody was non-reactive. There is no laboratory evidence of HCV infection. In most cases, no further action is required. However, if recent HCV exposure is suspected, a test for HCV RNA (test code 89160) is suggested. For additional information please refer to http://education.[employer]/faq/YNS96l9 (This link is being provided for informational/ educational purposes only.) Blood specimen (specimen) Blood specimen / Unknown 11/23/2018 9:46 AM EDT 11/23/2018 9:47 AM EDT Narrative [facility] - 11/24/2018 12:15 AM EDT FASTING:YES FASTING: YES Resulting Agency Comment Performing Organization Information: Site ID: [id number] Name: [email or web address] Address: [address] [place] [address], [place] [address] Director: Jessica Rubio MD Jayro Flores APRN LAB BLOOD ORDERABLES Final Re sult [facility] [address] [place] [address], [place] [address] from Last 3 Months or Most Recently Relevant to Health Maintenance [place] [place] [address] [facility] Care Teams Booking Prizer Relationship Specialty Start Date End Date Pcp, No PCP - General General Medicine 01/06/24
--- OUTSIDE RECORDS SUMMARY | 2025-05-07 16:29 | XMS_ITS | Encounter Summary ---
Author Organization [facility] Address [address] [place] [address] Care Team Providers Care Deli Cutter Slicer Name Role Phone Ros Flores APRN Primary Care Provider [phone] Pcp, No Primary Care Provider Unavailabl e Reason for Visit * Reason Comments Medication Refill Encounter Details Date Type Department Care Team (Late st Contact Info) Description 12/20/[address] [place] [phone] Ros Flores APRN 100 [facility] [address] [place] [address] Anxiety and depression Social History Tobacco Use [...] depression documented in this encounter Care Teams Deli Cutter Slicer Relationship Specialty Start Date End Date Ros Flores APRN [address] [place] [address] PCP - General Family Medicine 09/07/18 01/05/24 Pcp, No PCP - General General Medicine 01/06/24 documented as of this encounter
--- OUTSIDE RECORDS SUMMARY | 2025-05-07 16:29 | XMS_ITS | Clinical Summary ---
Author Organization [facility] Address [address] [place] [address] Care Team Providers Care Entry Level Software Engineer Name Role Phone Unavailable Primary Care Provider Unavailabl e Surgical History Surgery Date Site/Laterality Comments LASIK Bilateral PROCEDURE:LASIK UPPER GASTROINTESTINAL ENDOSCOPY PROCEDURE:UPPER GASTROINTESTINAL ENDOSCOPY COLONOSCOPY PROCEDURE:COLONOSCOPY COLONOSCOPY 07/16/2020 N/A PROCEDURE:COLONOSCOPY;COMMENT :Procedure: COLONOSCOPY; Surgeon: Tommy Hebert MD; Location: [facility]; Service: Gastroenterology; Laterality: N/A; UPPER GASTROINTESTINAL ENDOSCOPY 07/16/2020 N/A PROCEDURE:UPPER GASTROINTESTINAL ENDOSCOPY;COMMENT:Procedure: UPPER ENDOSCOPY-EGD; Surgeon: Tommy Hebert MD; Location: [facility]; Service: Gastroenterology; Laterality: N/A; Medical History Medical History Date Comments Hypertension DX:Hypertension Hyperlipidemia DX:Hyperlipidemi a Anxiety DX:Anxiety Depression DX:Depression Acid reflux DX:Acid reflux Hiatal hernia DX:Hiatal hernia Social History Tobacco Use Types Packs/Day Years Used Date Smoking Tobacco: Every Day Smokeless Tobacco: Never Alcohol Use Standard Drinks/Week Comments Yes 0 (1 standard drink = 0.6 oz pur e alcohol) Sex and Gender Information Value Date Recorded Sex Assigned at Not on file Legal Sex Male 5:15 PM EST Gender Identity Not on file Sexual Orientation Not on file Obstetrics History Plan of Treatment Health Maintenance Due Date Last Done Comments DTaP,Tdap,and Td Vaccines (1 - Tdap) 1977 Pneumococcal Vaccine: 50+ Ye ars (1 of 1 - PCV) 01/29/2008 Zoster Vaccines (1 of 2) 01/29/2008 Depression Screening 08/15/2024 COVID-19 Vaccine (1 - 2023-2 5 season) 2025 Influenza Vaccine (#1) 2025 RSV Immunization Adult Patie nts (1 - 1-dose 75+ series) 2033 Colorectal Cancer Screening: Colonoscopy Discontinued 07/16/2020 HIB Vaccines Aged Out No longer eligi ble based on patient's age to complete this topic HPV Vaccines Aged Out No longer eligi ble based on patient's age to complete this topic Hepatitis A Vaccines Aged Out No long er eligible based on patient's age to complete this topic Hepatitis B Vaccines Aged Out No long er eligible based on patient's age to complete this topic IPV Vaccines Aged Out No longer eligi ble based on patient's age to complete this topic MMR Vaccines Aged Out No longer eligi ble based on patient's age to complete this topic Meningococcal ACWY Vaccine Aged Out N o longer eligible based on patient's age to complete this topic Meningococcal B Vaccine Aged Out No l onger eligible based on patient's age to complete this topic RSV Immunization Patients Un akua 20 months Aged Out No longer eligible b ased on patient's age to complete this topic Varicella Vaccines Aged Out No longer eligible based on patient's age to complete this topic
--- OUTSIDE RECORDS SUMMARY | 2025-05-07 16:29 | XMS_ITS | Encounter Summary ---
Author Organization [facility] Address [address] [place] [address] Care Team Providers Care Medical Instrument Cable Fabricator Name Role Phone Ros Flores APRN Primary Care Provider [phone] Pcp, No Primary Care Provider Unavailabl e Encounter Details Date Type Department Care Team (Late st Contact Info) Description 03/12/2020 Scanned Document [address] [place] [address] Ros Flores APRN 100 [facility] [address] [place] [address] Social History Tobacco Use Types Packs/Day Years [...] on filedocumented in this encounter Care Teams Medical Instrument Cable Fabricator Relationship Specialty Start Date End Date Ros Flores APRN [address] [place] [address] PCP - General Family Medicine 09/07/18 01/05/24 Pcp, No PCP - General General Medicine 01/06/24 documented as of this encounter
== END 2025-05-07 15:02 | disposition home or self-care (01) ==
LOC: HO.HSM 13:26
PROVIDERS: Visit Provider Psychiatry & Neurology Neurology
DX: R26.0 Ataxic gait (principal); G20.C Parkinsonism, unspecified
CPT/HCPCS: 99214

== ENCOUNTER → 2025-05-07 13:26 | Outpatient (BNVA) | payer MEDICARE, SELFPAY | PROVIDERS: Visit Provider Psychiatry & Neurology Neurology | DX: R26.0 Ataxic gait (principal); G20.C Parkinsonism, unspecified | CPT/HCPCS: 99212 ==

== ENCOUNTER 2025-06-13 10:40 | Outpatient (AMB) | payer MEDICARE, SELFPAY ==
--- OUTSIDE RECORDS SUMMARY | 2025-06-11 06:00 | XMS_ITS ---
Author Organization [facility] Address [address] [place] [address] Care Team Providers Care Linux Programmer Name Role Phone Baldomero Slaughter Primary Care Provider ALLERGIES No Known Allergies REASON FOR VISIT (IN OFFICE), New Patient MEDICATIONS Medication SIG (Take, Route, Frequency, Duration) Notes Start Date End Date Status Pantoprazole Sodium 20 MG TAKE 2 TABLETS BY MOUTH ONCE DAILY Once a day Active Sertraline HCl 100 MG 0.5 tablet Orally Once a day Active Atorvastatin Calcium 20 MG 1 tablet Oral ly Once a day Active Famotidine 40 MG 1 tablet at bedtime Orally Once a day Active Carbidopa-Levodopa 25-100 MG 1 tablet as needed Orally Two times a Week Active amLODIPine Besylate 5 MG 1 tablet Orally Once a day Active IMMUNIZATIONS Vaccine Route Administration Date Status Comme nts * FLUARIX TIV PFS IM Intramuscular 06/11/2025 Administered PROBLEMS Problem Type ICD Code Onset Dates Problem Status W/U Status Risk SNOMED Code Notes Problem Parkinson's disease with dyskinesia, unspecified whether manifestations fluctuate (G20.B1) Active confirmed 83476894 VITAL SIGNS Blood pressure systolic 158 mm Hg 06/11/20 25 Blood pressure diastolic 98 mm Hg 025 Heart Rate 88 /min 06/11/2025 Height 73 in 06/11/2025 Weight 220.8 lbs 06/11/2025 BMI 29.13 kg/m2 06/11/2025 Encounters Encounter Location Date Provider Diagnosis [facility] [address] [place] [address] 06/11/2025 Baldomero Jenseneulalia Essential hypertensi on I10 ; Mixed hyperlipidemia E78.2 ; Parkinson's disease with dyskinesia, unspecified whether manifestations fluctuate G20.B1 ; Gastroesophageal reflux disease with esophagitis without hemorrhage K21.00 ; Major depressive disorder with single episode, in full remission F32.5 ; Generalized anxiety disorder F41.1 ; Encounter to establish care with new doctor Z76.89 ; Laboratory tests ordered as part of a complete physical exam (CPE) Z00.00 and Encounter for immunization Z23 ASSESSMENTS Encounter Date Diagnosis Assessment Notes Treatment Notes Treatment Clinical Notes Section Notes 06/11/2025 Essential hypertension (ICD-10 - I10) 06/11/2025 Mixed hyperlipidemia (ICD-10 - E78.2) 06/11/2025 Parkinson's disease with dyskinesia, unspecified whether manifestations fluctuate (ICD-10 - G20.B1) 06/11/2025 Gastroesophageal reflux disease with esophagitis without hemorrhage (ICD-10 - K21.00) 06/11/2025 Major depressive disorder with single episode, in full remission (ICD-10 - F32.5) 06/11/2025 Generalized anxiety disorder (ICD-10 - F41.1) 06/11/2025 Encounter to establish care with new doctor (ICD-10 - Z76.89) 06/11/2025 Laboratory tests ordered as part of a complete physical exam (CPE) (ICD-10 - Z00.00) 06/11/2025 Encounter for immunization (ICD-10 - Z23) 06/11/2025 Other This chart has been transcribed by a computerized dictation system. There are likely to be multiple computer system technician inaccuracies despite chart review. PLAN OF TREATMENT Medication Medication Name Sig Start Date Stop Date Notes Pantoprazole Sodium 20 MG TAKE 2 TABLETS BY MOUTH ONCE DAILY Once a day Sertraline HCl 100 MG 0.5 tablet Orally Once a day Atorvastatin Calcium 20 MG 1 tablet Orally Once a day Famotidine 40 MG 1 tablet at bedtime Orally Once a day Carbidopa-Levodopa 25-100 MG 1 tablet as needed Orally Two times a Week amLODIPine Besylate 5 MG 1 tablet Orally Once a day Treatment Notes Assessment Notes Other This chart has been transcribed by a computerized dictation system. There are likely to be multiple computer system technician inaccuracies despite chart review. Pending Test Test Name Order Date Hemoglobin [id number] 06/11/2025 Urinalysis, Complete-149625 06/11/2025 Vitamin D, 02-[id number] 06/11/2025 LP+Non-HDL Cholesterol-318334 06/11/2025 TSH+Free [id number] 06/11/2025 Hepatic Function Panel (6)-[id number] 2024 PSA Total (Reflex To Free)-[id number] 2024 Comp. Metabolic Panel (13)-[id number] 2024 Vitamin B12 and Folate-030182 06/11/2025 CBC with Diff, Platelet, [id number] 05/16 Next Appt Details Follow Up: 3 Weeks, Reason: Annual physical exam with Dr. Slaughter Provider Name:Baldomero cortez, 07/03/2025 10:30:00 AM, [address] [place] [address], [phone], Progress Notes * Examination Category Sub-Category Detail Notes Category Not es General Examination GENERAL APPEARANCE: in no ac council distress, well developed, well nourished HEAD: normocephalic, atrau matic EYES: pupils equal, round, reactive to light and accommodation THROAT: clear, no erythema, uvula midline, no exudate NECK/THYROID: neck supple, no thyr omegaly, trachea midline, no carotid bruit HEART: no murmurs, regular rate and rhythm, S1, S2 normal LUNGS: clear to auscultatio n bilaterally ABDOMEN: soft, nontender, non distended, no organomegaly , bowel sounds present NEUROLOGIC: alert and oriented x 3, nonfocal, uncontrolled movements present SKIN: no suspicious lesion s, warm and dry EXTREMITIES: no clubbing, cyanosi s, or edema PERIPHERAL PULSES: normal, 2+ throughou t MUSCULOSKELETAL: normal, full range o f motion LYMPH NODES: no cervical, axillar y, supraclavicular or inguinal adenopathy PSYCH: cognitive function i ntact, mood/affect full range ORAL CAVITY: mucosa moist, no les ions, palate normal, tongue in midline, well papillated History and Physical Notes * HPI (History of Present Illness) Category Sub-Category Detail Notes Category Not es Symptom(s) 65-year-old mal e with a history of essential hypertension, mixed hyperlipidemia, GERD, depression anxiety and ETOH abuse here to re-establish care with this practice. He tells me that he was recently diagnosed with Parkinson's and started on Carbidopa-Levodopa. He does have dyskinesia. He has an upcoming follow up with his neurologist and I asked for those office notes to be sent to us. I reviewed his medication list, family history, surgical history and hospitalizations. I have ordered appropriate lab work for prior to his physical exam. His blood pressure is mildly elevated today during his visit. He tells me that he has not taken his amlodipine yet today. I advised him to take it as soon as he gets home and to continue monitoring his blood pressure at home. I asked for him to bring his blood pressure logs and machine to his next visit. He denies chest pain, palpitations and shortness of breath. He received a flu shot during today's visit.
--- NOTE | 2025-06-13 10:58 | A.OFFVIS_ITS ---
Intake Visit Reasons: 4 week follow up Allergies No Known Allergies Allergy (Verified 05/03/25 14:35) HPI Comments Details: 65 yo man with progressive gait disorder for about a year. He was also having many other physical difficulties. On exam, he has mild right hemibody parkinsonian features, and gait disorder. According to reports, his MRI of brain revealed mild microvascular ischemic changes, right temporal encephalomalacia, and cerebellar vermian atrophy. MRI of cervical spine revealed C5-6 level spondylitic changes but no significant cord compression, an MRI of lumbosacral spine did not reveal any significant pathology for his age. He was prescribed carbidopa/levodopa, which did not make any difference. He continues to have difficulty walking. There was no bowel bladder difficulty. [facility] Medical History (Updated 06/13/25 @ 11:13 by Kandy Villavicencio MD) Lumbar radiculopathy Ataxic gait Review of Systems Narrative Difficulty walking. Physical Exam Neuro Other: Mental Status: Alert and oriented to person, place, and time. Normal attention. Normal spontaneous speech, fluency, and comprehension. Cranial Nerves: CN II: Visual jurado full to confrontation, visual acuity intact. CN III, IV, : Pupils equal, round, reactive to light and accommodation. Extraocular movements are normal. CN V: Facial sensation is normal. CN VII: Facial movements symmetrical. CN VIII: Hearing intact to bedside conversation is normal. CN IX, X: Palate elevates symmetrically. CN XI: Shoulder shrug and head turn symmetrical. CN XII: Tongue midline without atrophy or fasciculations. Motor: Bulk and tone normal in all extremities. No significant muscle weakness in arms and legs. No drift. Gait and Station: Slightly wide-based cautious slow paced gait with decreased right arm swing. Decreased movement of right leg. Extrapyramidal: Facial expression blinking or slightly diminished. Grasp reflexes noted. Speech: Normal; no dysarthria or tremor. Assessment & Plan Assessment & Plan (1) Parkinsonism: Code(s): G20.C - Parkinsonism, unspecified Category: Medical Qualifiers: Parkinsonism type: unspecified Qualified Code(s): G20.C - Parkinsonism, unspecified (2) Multifactorial gait disorder: Comment: MRI brain WO at [facility] in Sep 2024: Mild non specific WM changes, R temp encephalomalacia, vermian atrophy (reported) MRI C spine WO at [facility] in Nov 2024: C 5/6 mild stenosis and severe foraminal stenosis (reported) MRI LS spine WO at [facility] in February 2025: Diff mild DJD (reported) Code(s): R26.89 - Other abnormalities of gait and mobility Category: Medical (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 On examination he has moderately severe multifactorial gait disorder with mild features of right nash parkinsonism. He did not respond to levodopa. His brain imaging, according to report, revealed cerebellar vermian atrophy and some microvascular ischemic changes. I have not reviewed the scan myself. He probably has multifactorial (or alcohol induced cerebellar atrophy, neuropathy, and microvascular disease of brain) gait disorder in dementia. He can stopped carbidopa/levodopa as it was not helping. Mainstay of management is prevention and common sense measures to avoid any falls or accidents. He was advised not to drink, which she was not doing. Physical therapy and occupational therapy help was requested to guide him for being safe on day-to-day basis and continue with some exercises. Orders: Orders PT Evaluation and Treatment Today R26.89 - Other abnormalities of gait and mobility OT Evaluation and Treatment Today R26.89 - Other abnormalities of gait and mobility Coding Level of Care Code Est Pt Level 4 (12610) Diagnoses Parkinsonism, unspecified Parkinsonism type G20.C Parkinsonism type: unspecified Multifactorial gait disorder R26.89 Multifactorial dementia F03.90
--- OUTSIDE RECORDS SUMMARY | 2025-06-13 13:11 | XMS_ITS | Encounter Summary ---
Author Organization [facility] Address [address] [place] [address] Care Team Providers Care Solid Waste Truck Driver Name Role Phone Ros Flores APRN Primary Care Provider [phone] Pcp, No Primary Care Provider Unavailabl e Reason for Visit * Reason Comments Medication Refill Encounter Details Date Type Department Care Team (Late st Contact Info) Description 12/20/[address] [place] [phone] Ros Flores APRN 100 [facility] [address] [place] [address] Anxiety and depression Social History Tobacco Use [...] depression documented in this encounter Care Teams Solid Waste Truck Driver Relationship Specialty Start Date End Date Ros Flores APRN [address] [place] [address] PCP - General Family Medicine 09/07/18 01/05/24 Pcp, No PCP - General General Medicine 01/06/24 documented as of this encounter
--- OUTSIDE RECORDS SUMMARY | 2025-06-13 13:11 | XMS_ITS | Encounter Summary ---
Author Organization [facility] Address [address] [place] [address] Care Team Providers Care Keyboard Instrument Tuner Name Role Phone Ros Flores Raul CONNORS Primary Care Provider [phone] Pcp, No Primary Care Provider Unavailabl e Encounter Details Date Type Department Care Team (Late st Contact Info) Description 07/16/2020 Scanned Document [address] [place] [phone] Gastroenterology, Scan Social History Tobacco Use Types [...] on filedocumented in this encounter Care Teams Keyboard Instrument Tuner Relationship Specialty Start Date End Date Ros Flores APRN [address] [place] [address] PCP - General Family Medicine 09/07/18 01/05/24 Pcp, No PCP - General General Medicine 01/06/24 documented as of this encounter
--- OUTSIDE RECORDS SUMMARY | 2025-06-13 13:11 | XMS_ITS | Patient Health Record ---
Author Organization [facility] Address [address] [place] [address] Care Team Providers Care Space Systems Operations Craftsman Name Role Phone WilmandanaBaldomero Primary Care Provider [phone] ALLERGIES No Known Allergies REASON FOR REFERRAL No Information MEDICATIONS Medication SIG (Take, Route, Frequency, Duration) Notes Start Date End Date Status Pantoprazole Sodium 20 MG TAKE 2 TABLETS BY MOUTH ONCE DAILY Once a day Active Sertraline HCl 100 MG 0.5 tablet Orally Once a day Active amLODIPine Besylate 5 MG 1 tablet Orally Once a day Active Atorvastatin Calcium 20 MG 1 tablet Oral ly Once a day Active Famotidine 40 MG 1 tablet at bedtime Orally Once a day Active Carbidopa-Levodopa 25-100 MG 1 tablet as needed Orally Two times a Week Active IMMUNIZATIONS Vaccine Route Administration Date Status Comme nts * FLUARIX TIV PFS IM Intramuscular 06/11/2025 Administered *Influenza (Fluarix Quad) IM Intramuscular 06/08/2022 Admi [...] Problem Generalized anxiety disorder (F41.1) Active confirmed 94834435 Problem Mixed hyperlipidemia (E78.2) Active confirmed 147556072 Problem Essential hypertension (I10) Active confirmed 79540424 Problem Major depressive disorder with single episode, in full remission (F32.5) Active confirmed 37994788 Problem History of alcohol abuse (F10.11) Active confirmed 254003312 Problem Gastroesophageal reflux disease with esophagitis without hemorrhage (K21.00) Active confirmed 044238020 Problem Parkinson's disease with dyskinesia, unspecified whether manifestations fluctuate (G20.B1) Active confirmed 42829776 VITAL SIGNS Heart Rate 88 /min 06/11/2025 Blood pressure diastolic 98 mm Hg 06/11/2025 Height 73 in 06/11/2025 Blood pressure systolic 158 mm Hg 06/11/2025 Weight 220.8 lbs 06/11/2025 BMI 29.13 kg/m2 06/11/2025 Encounters Encounter Location Date Provider Diagnosis [facility] [address] 06/11/2025 Baldomero Slaughter Essential hypertensi on I10 ; Mixed hyperlipidemia [...] system. There are likely to be multiple production maintenance mechanic inaccuracies despite chart review. PLAN OF TREATMENT Pending Test Test Name Order Date X ray : Hip, right 08/18/2022 GUAIAC, SINGLE SPECIMEN 08/18/2022 25OH VITAMIN D 05/17/2023 25OH VITAMIN D 06/08/2022 AMMONIA, VENOUS 06/08/2022 AMYLASE 06/08/2022 CBC (COMPLETE BLOOD COUNT) WITH DIFF CBC (COMPLETE BLOOD COUNT) WITH DIFF 10/2022 COMPREHENSIVE METABOLIC PANEL 05/17/2023 COMPREHENSIVE METABOLIC PANEL 06/08/2022 FOLIC ACID 06/08/2022 GGTP 06/08/2022 HEPATIC FUNCTION PANEL 11/16/2022 LH 06/08/2022 LIPASE 06/08/2022 LIPID PANEL 06/08/2022 LIPID PANEL 11/16/2022 LIPID PANEL 05/17/2023 PSA, SCREEN 05/17/2023 PSA, SCREEN 06/08/2022 TESTOSTERONE, FREE, TOTAL AND BOUND 05/16 THYROID PANEL (TSH, FT4) 06/08/2022 THYROID PANEL (TSH, FT4) 05/17/2023 URINALYSIS, COMPLETE 05/17/2023 URINALYSIS, COMPLETE 06/08/2022 VITAMIN B12 06/08/2022 Hemoglobin [id number] 06/11/2025 Urinalysis, Complete-617780 06/11/2025 Vitamin D, 00-[id number] 06/11/2025 LP+Non-HDL Cholesterol-242924 06/11/2025 TSH+Free [id number] 06/11/2025 Hepatic Function Panel (6)-[id number] 2024 PSA Total (Reflex To Free)-[id number] 2024 Comp. Metabolic Panel (13)-[id number] 2024 Vitamin B12 and Folate-351201 06/11/2025 CBC with Diff, Platelet, [id number] 05/16 Next Appt Details Provider Name:Baldomero cortez, 07/03/2025 10:30:00 AM, [address] , [place], [address], Insurance Providers Payer Name Payer Address Payer Phone Subscriber Number Group Number Insured Name Patient Relationship to Insured Coverage Start Date Coverage End Date [address] [facility] [address] [id number] Mario Kovacs Self - patient is the insured MEDICAL (GENERAL) HISTORY Medical History History ICD Code Essential hypertension I10 Mixed hyperlipidemia E78.2 Gastroesophageal reflux disease with eso phagitis without hemorrhage K21.00 Major depressive disorder with single ep isode, in full remission F32.5 Generalized anxiety disorder F41.1 Parkinsons disease with dysk inesia, unspecified whether manifestations fluctuate G20.B1 History of alcohol abuse F10.11 Surgical History Surgery Date(Month/Year) Hospitalization History Reason Date(Month/Year) uncontrolled GERD 2021
--- OUTSIDE RECORDS SUMMARY | 2025-06-13 13:11 | XMS_ITS | Encounter Summary ---
Author Organization [facility] Address [address] [place] [address] Care Team Providers Care Preload Supervisor Name Role Phone Ros Flores APRN Primary Care Provider [phone] Pcp, No Primary Care Provider Unavailabl e Reason for Visit * Reason Onset Date Comments Medication Refill 03/05/2021 Encounter Details Date Type Department Care Team (Late st Contact Info) Description 03/05/[address] [place] [phone] Ros Flores APRN 100 [facility] [address] [place] [address] Erectile dysfunction, unspecified erectile dysfunction type Social [...] type documented in this encounter Care Teams Preload Supervisor Relationship Specialty Start Date End Date Ros Flores APRN [address] [place] [address] PCP - General Family Medicine 09/07/18 01/05/24 Pcp, No PCP - General General Medicine 01/06/24 documented as of this encounter
--- OUTSIDE RECORDS SUMMARY | 2025-06-13 13:11 | XMS_ITS | Clinical Summary ---
Author Organization [facility] [[email or web address]] Address [address] [place] [address] Care Team Providers Care Medical Videographer Name Role Phone Unavailable Primary Care Provider Unavailabl e Surgical History Surgery Date Site/Laterality Comments LASIK Bilateral PROCEDURE:LASIK UPPER GASTROINTESTINAL ENDOSCOPY PROCEDURE:UPPER GASTROINTESTINAL ENDOSCOPY COLONOSCOPY PROCEDURE:COLONOSCOPY COLONOSCOPY 07/16/2020 N/A PROCEDURE:COLONOSCOPY;COMMENT :Procedure: COLONOSCOPY; Surgeon: Tommy Hebert MD; Location: [facility]; Service: Gastroenterology; Laterality: N/A; UPPER GASTROINTESTINAL ENDOSCOPY 07/16/2020 N/A PROCEDURE:UPPER GASTROINTESTINAL ENDOSCOPY;COMMENT:Procedure: UPPER ENDOSCOPY-EGD; Surgeon: Tommy Hebert MD; Location: [facility]; Service: Gastroenterology; Laterality: N/A; Medical [...]
--- OUTSIDE RECORDS SUMMARY | 2025-06-13 13:11 | XMS_ITS | Encounter Summary ---
Author Organization [facility] Address [address] [place] [address] Care Team Providers Care Veneer Trimmer Name Role Phone Ros Flores APRN Primary Care Provider [phone] Pcp, No Primary Care Provider Unavailabl e Reason for Visit * Reason Comments Medication Refill Encounter Details Date Type Department Care Team (Late st Contact Info) Description 11/08/[address] [place] [phone] Ros Flores APRN 100 [facility] [address] [place] [address] Anxiety and depression Social History Tobacco Use [...] depression documented in this encounter Care Teams Veneer Trimmer Relationship Specialty Start Date End Date Ros Flores APRN [address] [place] [address] PCP - General Family Medicine 09/07/18 01/05/24 Pcp, No PCP - General General Medicine 01/06/24 documented as of this encounter
--- OUTSIDE RECORDS SUMMARY | 2025-06-13 13:11 | XMS_ITS | Encounter Summary ---
Author Organization [facility] Address [address] [place] [address] Care Team Providers Care Client Service Professional Name Role Phone Ros Flores APRN Primary Care Provider [phone] Pcp, No Primary Care Provider Unavailabl e Reason for Visit * Reason Comments Medication Refill Encounter Details Date Type Department Care Team (Late st Contact Info) Description 01/17/[address] [place] [phone] Ros Flores APRN 100 [facility] [address] [place] [address] Essential hypertension Social History Tobacco Use Types [...] hypertension documented in this encounter Care Teams Client Service Professional Relationship Specialty Start Date End Date Ros Flores APRN [address] [place] [address] PCP - General Family Medicine 09/07/18 01/05/24 Pcp, No PCP - General General Medicine 01/06/24 documented as of this encounter
--- OUTSIDE RECORDS SUMMARY | 2025-06-13 13:11 | XMS_ITS | Encounter Summary ---
Author Organization [facility] Address [address] [place] [address] Care Team Providers Care Carton Stamper Name Role Phone Ros Flores APRN Primary Care Provider [phone] Pcp, No Primary Care Provider Unavailabl e Reason for Visit * Reason Onset Date Comments Medication Refill 01/13/2020 Encounter Details Date Type Department Care Team (Late st Contact Info) Description 01/13/2020 Refill [facility] [address] [facility] [address] [place] [phone] Ros Flores APRN [address] [place] [address] [address] [place] [address] Essential hypertension Social History Tobacco Use Types [...] hypertension documented in this encounter Care Teams Carton Stamper Relationship Specialty Start Date End Date Ros Flores APRN [address] [place] [address] PCP - General Family Medicine 09/07/18 01/05/24 Pcp, No PCP - General General Medicine 01/06/24 documented as of this encounter
--- OUTSIDE RECORDS SUMMARY | 2025-06-13 13:11 | XMS_ITS | Clinical Summary ---
Author Organization [facility] Address [address] [place] [address] Care Team Providers Care Juvenile Corrections Officer Name Role Phone Pcp, No Primary Care [...] 50+ (1 of 2 - PCV) 1977 RSV Vaccine 50 years and older and Patients (1 - Risk 50-74 years 1-dose series) 01/29/2008 Zoster (Shingles) Vaccine (1 of 2) 01/29/2008 Influenza Vaccine 03/15/2025 10/30/2021, , 06/11/2019, Additional [...] Ag/Ab, 4th Gen NON-REACT ABILIO NON-REACT ABILIO [facility] Comment: HIV-1 antigen and HIV-1/HIV-2 antibodies were [...] purpose. For additional information please refer to http://education.SuperGen.bluebird bio/faq/LCJ237 (This link is being provided for informational/ educational purposes only.) The performance of this assay has not been clinically validated in patients less than 2 years old. Blood specimen (specimen) Blood specimen / Unknown 02/10/2022 1:15 PM EDT 02/10/2022 1:16 PM EDT us Jayro Flores APRN LAB BLOOD ORDERABLES Final Re sult [facility] 200 [facility], [facility], [place] [address] * CT Abdomen+pelvis w/contrast (10/27/2020 4:16 PM [...] your patient to us, Kim Ta MD [id number] (Electronically Signed - 10/27/2020 16:16) Copy: JAYRO FLORES BOILER TUBE REAMER [facility]- [facility] [address] [place] [address] Narrative 10/27/2020 4:16 PM EDT [...] characterize, measuring up to 0.8 cm, likely commercial sales representative of cysts (for example series [...] tocharacterize, measuring up to 0.8 cm, likely commercial sales representative of cysts (for example series2, [...] your patient to us, Kim Ta MD [id number] (Electronically Signed - 10/27/2020 16:16) Copy: JAYRO FLORES WAYLON [facility]- [facility] [address] [facility] [address] us Pancho Servin MD IMG CT ORDERABLES [...] a test for HCV RNA (test code 47818) is suggested. For additional information please refer to http://education.[employer]/faq/EJU33n7 (This link is being provided for informational/ educational purposes only.) Blood specimen (specimen) Blood specimen / Unknown 11/23/2018 9:46 AM EDT 11/23/2018 9:47 AM EDT Narrative [facility] - 11/24/2018 12:15 AM EDT FASTING:YES FASTING: YES Resulting Agency Comment Performing Organization Information: Site ID: [id number] Name: [facility] Address: [address] [place] [address], [place] [address] Director: Jessica Rubio MD Jayro Flores APRN LAB BLOOD ORDERABLES Final Re sult [facility] [address] [place] [address], [place] [address] from Last 3 Months or Most Recently Relevant to Health Maintenance [place] [address] [place] [address] [facility] Care Teams Juvenile Corrections Officer Relationship Specialty Start Date End Date Pcp, No PCP - General General Medicine 01/06/24
--- OUTSIDE RECORDS SUMMARY | 2025-06-13 13:11 | XMS_ITS | Encounter Summary ---
Author Organization [facility] Address [address] [place] [address] Care Team Providers Care Wireless Store Manager Name Role Phone Ros Flores APRN Primary Care Provider [phone] Pcp, No Primary Care Provider Unavailabl e Reason for Visit * Reason Comments Medication Refill Encounter Details Date Type Department Care Team (Late st Contact Info) Description 03/03/[address] [place] [phone] Ros Flores APRN 100 [facility] [address] [place] [address] Erectile dysfunction, unspecified erectile dysfunction type Social [...] type documented in this encounter Care Teams Wireless Store Manager Relationship Specialty Start Date End Date Ros Flores APRN [address] [place] [address] PCP - General Family Medicine 09/07/18 01/05/24 Pcp, No PCP - General General Medicine 01/06/24 documented as of this encounter
--- OUTSIDE RECORDS SUMMARY | 2025-06-13 13:11 | XMS_ITS | Encounter Summary ---
Author Organization [facility] Address [address] [place] [address] Care Team Providers Care Medical Front Desk Specialist Name Role Phone Ros Flores APRN Primary Care Provider [phone] Pcp, No Primary Care Provider Unavailabl e Reason for Visit * Reason Comments Medication Refill Encounter Details Date Type Department Care Team (Late st Contact Info) Description 07/16/2019 Refill [facility] 100 [facility] [address] [place] [address] Ros Flores APRN 100 [facility] [address] [place] [address] Essential hypertension (Primary Dx); Hiatal hernia Social [...] gangrene documented in this encounter Care Teams Medical Front Desk Specialist Relationship Specialty Start Date End Date Ros Flores APRN [address] [place] [address] PCP - General Family Medicine 09/07/18 01/05/24 Pcp, No PCP - General General Medicine 01/06/24 documented as of this encounter
--- OUTSIDE RECORDS SUMMARY | 2025-06-13 13:11 | XMS_ITS | Encounter Summary ---
Author Organization [facility] Address [address] [place] [address] Care Team Providers Care Tetryl Screen Operator Name Role Phone Ros Flores APRN Primary Care Provider [phone] Pcp, No Primary Care Provider Unavailabl e Reason for Visit * Reason Comments Medication Refill Encounter Details Date Type Department Care Team (Late st Contact Info) Description 07/09/2019 Refill [facility] [address] [facility] [address] [place] [address] Ros Flores APRN 100 [facility] [address] [place] [address] Anxiety and depression (Primary Dx) Social History [...] Primary documented in this encounter Care Teams Tetryl Screen Operator Relationship Specialty Start Date End Date Ros Flores APRN [address] [place] [address] PCP - General Family Medicine 09/07/18 01/05/24 Pcp, No PCP - General General Medicine 01/06/24 documented as of this encounter
--- OUTSIDE RECORDS SUMMARY | 2025-06-13 13:11 | XMS_ITS | Encounter Summary ---
Author Organization [facility] Address [address] [place] [address] Care Team Providers Care Brazer Furnace Name Role Phone Mark Ros Raul CONNORS Primary Care Provider Pcp, No Primary Care Provider Unavailabl e Encounter Details Date Type Department Care Team (Late st Contact Info) Description 11/01/2023 Telephone [facility] [address] [place] [phone] Terrance Stephenson [address] [facility] [address] [place], [place] [address] Social History Tobacco Use Types Packs/Day Years [...] on filedocumented in this encounter Care Teams Brazer Furnace Relationship Specialty Start Date End Date Ros Flores APRN [address] [place] [address] PCP - General Family Medicine 09/07/18 01/05/24 Pcp, No PCP - General General Medicine 01/06/24 documented as of this encounter
--- OUTSIDE RECORDS SUMMARY | 2025-06-13 13:11 | XMS_ITS | Encounter Summary ---
Author Organization [facility] Address [address] [place] [address] Care Team Providers Care Psychological Science Professor Name Role Phone Ros Flores APRN Primary Care Provider [phone] Pcp, No Primary Care Provider Unavailabl e Reason for Visit * Reason Comments Medication Refill Encounter Details Date Type Department Care Team (Late st Contact Info) Description 12/30/[address] [place] [address] Ros Flores APRN 100 [facility] [address] [place] [address] Essential hypertension Social History Tobacco Use Types [...] hypertension documented in this encounter Care Teams Psychological Science Professor Relationship Specialty Start Date End Date Ros Flores APRN [address] [place] [address] PCP - General Family Medicine 09/07/18 01/05/24 Pcp, No PCP - General General Medicine 01/06/24 documented as of this encounter
--- OUTSIDE RECORDS SUMMARY | 2025-06-13 13:11 | XMS_ITS | Encounter Summary ---
Author Organization [facility] Address [address] [place] [address] Care Team Providers Care Apartment Leasing Manager Name Role Phone Ros Flores APRN Primary Care Provider [phone] Pcp, No Primary Care Provider Unavailabl e Encounter Details Date Type Department Care Team (Late st Contact Info) Description 11/13/2021 Scanned Document [address] [place] [address] Ros Flores APRN 100 [facility] [address] [place] [address] Social History Tobacco Use Types Packs/Day Years [...] on filedocumented in this encounter Care Teams Apartment Leasing Manager Relationship Specialty Start Date End Date Ros Flores APRN [address] [address] PCP - General Family Medicine 09/07/18 01/05/24 Pcp, No PCP - General General Medicine 01/06/24 documented as of this encounter
--- OUTSIDE RECORDS SUMMARY | 2025-06-13 13:11 | XMS_ITS | Encounter Summary ---
Author Organization [facility] Address [address] [place] [address] Care Team Providers Care Corporate Recycling Manager Name Role Phone Ros Flores APRN Primary Care Provider [phone] Pcp, No Primary Care Provider Unavailabl e Encounter Details Date Type Department Care Team (Late st Contact Info) Description 03/12/2020 Scanned Document [address] [place] [address] Ros Flores APRN 100 [facility] 101 [place] [address] Social History Tobacco Use Types Packs/Day Years [...] PM EDT documented as of this encounter Functional Status documented as of this encounter Plan of Treatment Not on file documented as of this encounter Visit Diagnoses Not on filedocumented in this encounter Care Teams Corporate Recycling Manager Relationship Specialty Start Date End Date Ros Flores APRN [address] [facility] [address] [place] [address] PCP - General Family Medicine 09/07/18 01/05/24 Pcp, No PCP - General General Medicine 01/06/24 documented as of this encounter
--- OUTSIDE RECORDS SUMMARY | 2025-06-13 13:11 | XMS_ITS | Encounter Summary ---
Author Organization [facility] Address [address] [place] [address] Care Team Providers Care Sign Painter Helper Name Role Phone Ros Flores APRN Primary Care Provider [phone] Pcp, No Primary Care Provider Unavailabl e Encounter Details Date Type Department Care Team (Late st Contact Info) Description 03/12/2020 Scanned Document [address] [place] [address] Ros Flores APRN 100 [facility] 101 [place] [address] Social History Tobacco Use Types Packs/Day Years [...] on filedocumented in this encounter Care Teams Sign Painter Helper Relationship Specialty Start Date End Date Ros Flores APRN [address] [facility] [address] [place] [address] PCP - General Family Medicine 09/07/18 01/05/24 Pcp, No PCP - General General Medicine 01/06/24 documented as of this encounter
--- OUTSIDE RECORDS SUMMARY | 2025-06-13 13:11 | XMS_ITS | Clinical Summary ---
Author Organization [facility] Address [address] [place] [address] Care Team Providers Care Desk Representative Name Role Phone Ros Flores WAYLON Primary Care Provider [phone] Allergies No known active allergies Medications Medication [...] age to complete this topic Care Teams Desk Representative Relationship Specialty Start Date End Date Ros Flores APRN [address] [place] [address] PCP - General Unknown Physician Specialty 07/16/20
--- OUTSIDE RECORDS SUMMARY | 2025-06-13 13:12 | XMS_ITS | Encounter Summary ---
Author Organization [facility] Address [address] [place] [address] Care Team Providers Care Electronics Parts Sales Representative Name Role Phone Ros Flores WAYLON Primary Care Provider [phone] Pcp, No Primary Care Provider Unavailabl e Encounter Details Date Type Department Care Team (Late st Contact Info) Description 04/07/2020 Scanned Document [facility] [address] [place] [address] Provider, Jaylene, [address] [place] [address] Social History Tobacco Use Types Packs/Day Years [...] on filedocumented in this encounter Care Teams Electronics Parts Sales Representative Relationship Specialty Start Date End Date Ros Flores APRN [address] [place] [address] PCP - General Family Medicine 09/07/18 01/05/24 Pcp, No PCP - General General Medicine 01/06/24 documented as of this encounter
== END 2025-06-13 11:17 | disposition home or self-care (01) ==
LOC: HO.HSM 10:41
PROVIDERS: Visit Provider Psychiatry & Neurology Neurology
DX: G20.C Parkinsonism, unspecified (principal); R26.89 Other abnormalities of gait and mobility; F03.90 Unspecified dementia, unspecified severity, without behavioral disturbance, psychotic disturbance, mood disturbance, and anxiety
CPT/HCPCS: 99214

== ENCOUNTER → 2025-06-13 10:40 | Outpatient (BNVA) | payer MEDICARE, SELFPAY | PROVIDERS: Visit Provider Psychiatry & Neurology Neurology | DX: G20.C Parkinsonism, unspecified (principal); R26.89 Other abnormalities of gait and mobility; F03.90 Unspecified dementia, unspecified severity, without behavioral disturbance, psychotic disturbance, mood disturbance, and anxiety | CPT/HCPCS: 99212 ==